=== PATIENT | female | born 1965 | race Native Hawaiian/Other Pacific Islander ===

== ENCOUNTER 2016-10-03 12:51 | Outpatient (CLI) | payer BC | END 2016-10-03 22:06 | disposition home or self-care (01) | LOC: MAMMO 12:51 | DX: Z12.31 Encounter for screening mammogram for malignant neoplasm of breast (principal) | CPT/HCPCS: G0202-TC ==

== ENCOUNTER 2016-10-20 13:29 | Emergency (ER) | payer BC ==
[~2016-10-20] VITALS: Ht 157.5 cm; Wt 111.1 kg
[2016-10-20 13:46] VITALS: BP 177/93; TEMP 98
== END 2016-10-20 15:29 | disposition home or self-care (01) ==
LOC: ED 13:29
DX: S62.291A Other fracture of first metacarpal bone, right hand, initial encounter for closed fracture (principal); X58.XXXA Exposure to other specified factors, initial encounter; Y92.89 Other specified places as the place of occurrence of the external cause
CPT/HCPCS: 99282

== ENCOUNTER 2017-01-21 09:41 | Outpatient (CLI) | payer BC | END 2017-01-21 11:00 | disposition home or self-care (01) | LOC: US 09:41 | DX: E03.8 Other specified hypothyroidism (principal) ==

== ENCOUNTER 2019-06-01 08:31 | Outpatient (CLI) | payer BC | END 2019-06-01 23:35 | disposition home or self-care (01) | LOC: MAMMO 08:31 | DX: Z12.31 Encounter for screening mammogram for malignant neoplasm of breast (principal) ==

== ENCOUNTER 2020-10-24 08:40 | Outpatient (CLI) | payer BC | END 2020-10-24 19:30 | disposition home or self-care (01) | LOC: MAMMO 08:40 | PROVIDERS: ATTEND Nurse Practitioner Family | DX: Z12.31 Encounter for screening mammogram for malignant neoplasm of breast (principal) ==

== ENCOUNTER 2021-10-30 09:07 | Outpatient (CLI) | payer BC | END 2021-10-30 19:03 | disposition home or self-care (01) | LOC: MAMMO 09:07 | PROVIDERS: ATTEND Nurse Practitioner Family | DX: Z12.31 Encounter for screening mammogram for malignant neoplasm of breast (principal) ==

== ENCOUNTER 2022-12-17 08:38 | Outpatient (CLI) | payer BC | END 2022-12-17 20:51 | disposition home or self-care (01) | LOC: MAMMO 08:38 | PROVIDERS: ATTEND Nurse Practitioner Family | DX: Z12.31 Encounter for screening mammogram for malignant neoplasm of breast (principal) ==